=== PATIENT | female | born 1950 ===

== ENCOUNTER 2021-03-24 09:21 | Day surgery (SDC) | payer OTHER ==
[~2021-03-24 09:21] MED LIST: ADULT LOW DOSE81 M1 PO; CARDIZEM LA240 MG PO; EVISTA60 MG PO; LANOXIN62.5 MCG PO; LIPIT PO; METFORMIN HCL500 M3 PO; SINGULAIR10 MG PO; VASOFL PO; [UNRECOGNIZED DRUG - OTHER] PO
== END 2021-03-24 17:15 | disposition home or self-care (01) ==
LOC: CIR.AMB 09:21
PROVIDERS: ATTEND Student in an Organized Health Care Education/Training Program
DX: N39.41 Urge incontinence (principal); Z20.822 Contact with and (suspected) exposure to COVID-19
CPT/HCPCS: 64590; 64581; 95972; C1778; L8679